=== PATIENT | male | born 1985 | race Caucasian/White ===

== ENCOUNTER 2023-11-24 08:28 | Emergency (ER) | payer OTHER, SELFPAY ==
[2023-11-24 08:32] VITALS: BP 170/98; PULSE 114; RESP 20; TEMP 35.9; O2SAT 98; BMI 32.1
--- NOTE | 2023-11-24 08:35 | ED.GENADULT ---
HPI - General Adult General Time Seen by Provider: 08:35 Date Seen: 11/24/23 Chief complaint: Extremity Pain/Injury, Lower Stated complaint: R leg swollen, numb Time Seen by Provider: 11/24/23 08:35 Source: patient and RN notes reviewed Mode of arrival: ambulatory Limitations: no limitations History of Present Illness HPI narrative: This 38-year-old male is coming in with right lower extremity swelling. He admits that his left like his low swollen too. He states this started after he was treated for scabies about 2 weeks ago. He states that the bottom of his foot was cracked, shows me pictures of his phones raise got what appears to be linear scratches that are superficial over the heel area. He states those were actually burrows. He states he has put some Aquaphor on the bottom of his foot. He states that last night the right leg started feel little numb. He denies any history of blood clots. He states he has not had any fevers. He does smoke, denies alcohol use, admits to cocaine use. There is no family history of blood clots that he is aware of. There is a grandfather that has had heart disease and his dad is on blood pressure medicine for hypertension. He otherwise denies trauma to this extremity. No pain. Denies any back pain or radicular symptoms. Related Data Previous Rx's ?Medication ?Instructions ?Recorded permethrin 1 % topical liquid 60 ml topical ONCE #118 mL 11/08/23 permethrin 5 % topical cream 1 applic topical ONCE #60 grams 11/13/23 cephalexin 500 mg tablet 500 mg PO TID #15 tabs 11/24/23 Allergies Allergy/AdvReac Type Severity Reaction Status Date / Time Penicillins Allergy Mild Verified 11/24/23 08:31 sertraline [From Zoloft] Allergy Mild Verified 11/24/23 08:31 Review of Systems Narrative: As per HPI. Exam Const: Vital Signs, click to edit/add: Vital Signs - 24 hr 11/24/23 08:32 Temperature 96.7 F L Pulse Rate [Pulse Oximeter] 114 H Respiratory Rate 20 Blood Pressure [Ri ght Upper Arm] 170/98 H Pulse Oximetry 98 Oxygen Delivery Me thod Room Air This 38-year-old male is ambulatory into the ED of his own accord. He is alert, interactive, no apparent distress. He has good eye contact, normal speech at this time. Breathing easily on room air, lungs are clear, no wheezing or crackles. CV fast but regular, no murmur, normal S1-S2, no S3-S4. His lower extremities are inspected. He does have mild increased size of his right calf and lower extremity when visibly compared to the left. Both have normal warmth, right maybe has a little bit more of a erythematous change but no petechial hemorrhages. Normal peripheral pulses, normal distal sensation. No calf tenderness. Knee is fully mobile, no tenderness, no effusion. He is ambulatory without any difficulty. Documenting provider has reviewed patient's vital signs: yes Course Course ED Course: Reviewed with patient that cellulitis can be a cause for swelling he agrees he is not had any fever, no discomfort. We will get some screening labs. We will look at his white blood count. We will rule out DVT on this side with an ultrasound. If laboratory workup is negative an ultrasound negative, will discuss period of observation and likely discharge to home. Reevaluation(s) Time of Reevaluation #1: 10:01 Reevaluation #1: Reviewed with patient that his ultrasound of his lower extremity is showing no clot. He was wondering why they did not ultrasound his foot to see if there was something in there. Reviewed with him that we cannot see the veins on an ultrasound of the foot in do not do ultrasound for this. Reviewed with him that I had seen is foot, it looks reassuring. He stated that he really had not been felt very heard by urgent care or by us in the ER. He states he has been having larva crawl out of his skin. He wanted an alcohol wipe so he could show me. I calmly tried to talk to him about stimulant psychosis that we do commonly see. Did review with him that his white count was elevated, there could be a component of cellulitis starting in this leg, he would consider taking antibiotics. He was quite upset with me as he feels he has larva crawling under his skin. Tried to reassure him that this is very likely a stimulant induced psychosis, he abruptly got up from his chair, was mad in stating he was leaving. He is certainly exhibiting the phenomenon of seeing bugs in his skin that we not so infrequently see with patient's like this but he otherwise seems to be grounded, do not feel he is holdable for any reason. Vital Signs Vital signs: Initial Vital Signs Temperature 96.7 F L 11/24/23 08:32 Temperature Source Temporal Artery Scan 11/24/23 08:32 Pulse Rate 114 H 11/24/23 08:32 Respiratory Rate 20 11/24/23 08:32 Blood Pressure 170/98 H 11/24/23 08:32 Blood Pressure Mean 122 H 11/24/23 08:32 Blood Pressure Position Sitting 11/24/23 08:32 Pulse Oximetry 98 11/24/23 08:32 Oxygen Delivery Method Room Air 11/24/23 08:32 Vital Signs Temperature 96.7 F L 11/24/23 08:32 Pulse Rate 114 H 11/24/23 08:32 Respiratory Rate 20 11/24/23 08:32 Blood Pressure 170/98 H 11/24/23 08:32 Pulse Oximetry 98 11/24/23 08:32 Oxygen Delivery Method Room Air 11/24/23 08:32 Temperature 96.7 F L 11/24/23 08:32 Pulse Rate 114 H 11/24/23 08:32 Respiratory Rate 20 11/24/23 08:32 Blood Pressure 170/98 H 11/24/23 08:32 Pulse Oximetry 98 11/24/23 08:32 Oxygen Delivery Method Room Air 11/24/23 08:32 Medical Decision Making Lab Data Lab results reviewed: Yes I reviewed the patient's lab results Labs: Lab Results 11/24/23 Range/Units 08:53 WBC 12.96 H (4.50-11.00) K/uL RBC 5.10 (4.30-5.90) m/uL Hgb 15.2 (13.5-17.5) gm/dL Hct 44.5 (37.0-53.0) % MCV 87 (80-100) fL MCH 30 (26-34) pg MCHC 34 (32-36) gm/dL RDW Coeff of Karla 12.6 (11.5-15.5) % Plt Count 248 (140-440) K/uL Neut % (Auto) 64.6 (42.0-72.0) % Lymph % (Auto) 25.3 (20-44) % [place] % (Auto) 7.5 (0.0-11.0) % Eos % (Auto) 2.2 (0.0-7.0) % Baso % (Auto) 0.2 (0.0-3.0) % Neut # (Auto) 8.40 H (1.7-7.0) K/uL Lymph # (Auto) 3.30 H (0.90-2.90) K/uL [place] # (Auto) 1.00 H (0.00-0.90) K/UL Eos # (Auto) 0.30 (0.00-0.50) K/uL Baso # (Auto) 0.00 (0.00-0.30) K/uL Abs Immat Gran (auto) 0.00 (0.00-0.30) K/uL Imm/Tot Granulo (auto) 0.2 % D-Dimer Quant (PE/DVT) 0.22 (0.00-0.50) ug/ml Sodium 140 (135-149) mmol/L Potassium 3.8 (3.6-5.1) mmol/L Chloride 103 (96-114) mmol/L Carbon Dioxide 29 (20-32) mmol/L Anion Gap 8 (7-15) mEq/L BUN 12 (5-24) mg/dL Creatinine 0.7 (0.5-1.5) mg/dL Estimated Creat Clear 133.77 Estimated GFR 121 ml/min Glucose 103 (60-115) mg/dL Calcium 9.4 (8.4-10.6) mg/dL C-Reactive Protein 0.7 (0.5-1.0) mg/dL Imaging Data Venous US: Attestation: I have reviewed the pertinent imaging results. Radiologist's impression: Patient: BRENDA SPARKS Facility:?[facility] Patient ID:?[id number] Site Patient ID:?[id number]. Site :?[id number] Study:?US-Extremity Right -11/24/2023 9:32:05 AM Ordering Physician:Sarita Rahman Final Report: INDICATION: Leg redness and swelling. TECHNIQUE: Ultrasound venous duplex lower right extremity. Compression venous exam was performed using ramsey-scale, color Doppler, and spectral Doppler analysis. COMPARISON: None available. FINDINGS: Deep veins: Sonographic imaging demonstrates the right common femoral, deep femoral, superficial femoral, popliteal, posterior tibial, peroneal and the contralateral left common femoral veins to be fully compressible with normal color Doppler blood flow. Superficial veins: Visualized portions of the greater saphenous vein are fully compressible. IMPRESSION: Normal right lower extremity venous ultrasound, no sign of deep venous thrombosis. 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 I highly encourage you to refrain from cocaine as this most certainly can contribute to some of the symptoms you are feeling. Cocaine has definite deleterious health affects as well. If you are having increasing redness or swelling, develops fever, do recommend re-evaluation for your leg. Activity Level: No Restrictions Prescriptions: New cephalexin 500 mg tablet 500 mg PO TID Qty: 15 0RF No Action permethrin 1 % liquid 60 ml topical ONCE Qty: 118 1RF Rx Instructions: may repeat treatment 7 days after first treatment if live lice remain permethrin 5 % cream 1 applic topical ONCE Qty: 60 0RF Rx Instructions: leave on for 8 to14 hrs before washing off Follow Up/Referrals: Provider,Not a Local [Primary Care Provider] - Stand Alone Forms: MyHealth Info Instructions
--- NOTE | 2023-11-24 08:41 | CRLHL7_ITS ---
For Patients: As a result of the Century Cures Act, medical imaging exams and procedure reports are released immediately into your electronic medical record. You may view this report before your referring provider. If you have questions, please contact your health care provider. INDICATION: Leg redness and swelling. TECHNIQUE: Ultrasound venous duplex lower right extremity. Compression venous exam was performed using ramsey-scale, color Doppler, and spectral Doppler analysis. COMPARISON: None available. FINDINGS: Deep veins: Sonographic imaging demonstrates the right common femoral, deep femoral, superficial femoral, popliteal, posterior tibial, peroneal and the contralateral left common femoral veins to be fully compressible with normal color Doppler blood flow. Superficial veins: Visualized portions of the greater saphenous vein are fully compressible. IMPRESSION: Normal right lower extremity venous ultrasound, no sign of deep venous thrombosis. Dictated by Cecily Kang MD @ 11/24/2023 9:40:40 AM (Electronically Signed)
[2023-11-24 08:58] LABS: Basophils Percent Auto 0.2 % (0.0-3.0); Eosinophils Percent Auto 2.2 % (0.0-7.0); Hematocrit 44.5 % (37.0-53.0); Hemoglobin* 15.2 gm/dL (13.5-17.5); Immature Granulocytes Pct Auto 0.2 %; Lymphocytes Percent Auto 25.3 % (20-44); Mean Corpuscular HGB Conc 34 gm/dL (32-36); Mean Corpuscular Hemoglobin 30 pg (26-34); Mean Corpuscular Volume 87 fL (80-100); Monocytes Percent Auto 7.5 % (0.0-11.0); Neutrophils Percent Auto 64.6 % (42.0-72.0); Platelet Count* 248 K/uL (140-440); RDW Coefficient of Variation % 12.6 % (11.5-15.5); White Blood Count* 12.96 K/uL (4.50-11.00)
[2023-11-24 09:08] LABS: Slide Review Reflex No
[2023-11-24 09:09] LABS: Chloride* 103 mmol/L (96-114)
[2023-11-24 09:10] LABS: Potassium* 3.8 mmol/L (3.6-5.1); Sodium* 140 mmol/L (135-149)
[2023-11-24 09:12] LABS: Creatinine* 0.7 mg/dL (0.5-1.5); Est. Creatinine Clearance* 133.77; Estimated Glomerular Filt Rate 121 ml/min
[2023-11-24 09:13] LABS: Anion Gap 8 mEq/L (7-15); Blood Urea Nitrogen* 12 mg/dL (5-24); Calcium* 9.4 mg/dL (8.4-10.6); Carbon Dioxide* 29 mmol/L (20-32); Glucose* 103 mg/dL (60-115)
[2023-11-24 09:16] LABS: C Reactive Protein* 0.7 mg/dL (0.5-1.0)
[2023-11-24 09:24] LABS: D Dimer Quantitative* 0.22 ug/ml (0.00-0.50)
[2023-11-24 10:08] VITALS: BP 170/98; PULSE 114; RESP 20; TEMP 35.9
== END 2023-11-24 10:18 | disposition home or self-care (01) ==
PROVIDERS: Emergency Provider Family Medicine
DX: F15.951 Other stimulant use, unspecified with stimulant-induced psychotic disorder with hallucinations (principal); L03.115 Cellulitis of right lower limb
CPT/HCPCS: 36415; 80048; 85025; 85379; 86140; 93971; 99284